=== PATIENT | female | born 1950 ===

== ENCOUNTER → 2025-04-29 10:08 | Outpatient (REF) | payer MEDICARE, OTHER, SELFPAY ==
[2025-04-29 10:48] LABS: % Basophils 0.7 % (0-2); % Eosinophils 0.5 % (0-6); % Immature Granulocytes 0.2 % (0-0.5); % Lymphocytes 16.9 % (20.5-51.1); % Neutrophils 74.7 % (42.2-75.2); Absolute Basophils 0.1 10^3/uL (0-0.2); Absolute Eosinophils 0.1 10^3/uL (0-0.7); Absolute Lymphocytes 1.6 10^3/uL (1.2-3.4); Absolute Monocytes 0.6 10^3/uL (0.1-0.6); Absolute Neutrophils 6.8 10^3/uL (1.4-6.5); Hematocrit 42.7 % (37.0-47.0); Hemoglobin 14.6 g/dL (12.0-16.0); Mean Corp Hgb Conc. 34.2 g/dL (33.0-37.0); Mean Corpuscular Hgb 30.7 pg (27.0-31.0); Mean Corpuscular Volume 89.9 fL (81.0-99.0); Mean Platelet Volume 9.3 fL (7.4-10.4); Nucleated Red Blood Cells % 0 %; Platelet Count 307 10^3/uL (130-400); Red Blood Cell Count 4.75 10^6/uL (4.20-5.40); Red Cell Dist. Width 13.6 % (11.5-14.5); White Blood Cell Count 9.2 10^3/uL (4.8-10.8)
[2025-04-29 11:43] LABS: ALT (SGPT) 16 U/L (0-35); AST (SGOT) 22 U/L (14-36); Albumin 4.6 g/dl (3.5-5.0); Alkaline Phosphatase 66 U/L (38-126); Blood Urea Nitrogen 16 mg/dl (7-17); Calcium 10.4 mg/dl (8.4-10.2); Carbon Dioxide 29 mmol/L (22-30); Chloride 106 mmol/L (98-107); Glucose 102 mg/dl (70-99); Potassium 4.6 mmol/L (3.5-5.1); Sodium 143 mmol/L (135-145); Total Bilirubin 0.5 mg/dl (0.2-1.3); Total Protein 7.9 g/dl (6.3-8.2); eGFR 58.02
== END ==
LOC: SDSPAT 10:08
PROVIDERS: ATTENDING PHYSICIAN Student in an Organized Health Care Education/Training Program; FAMILY PHYSICIAN Internal Medicine; REFERRING PHYSICIAN Internal Medicine Cardiovascular Disease
DX: R94.39 Abnormal result of other cardiovascular function study (principal); I25.10 Atherosclerotic heart disease of native coronary artery without angina pectoris
CPT/HCPCS: 36415; 80053; 85025; 93005

== ENCOUNTER 2025-05-03 06:13 | Day surgery (SDC) | payer MEDICARE, OTHER, SELFPAY ==
[2025-04-29 10:29] VITALS: BMI 27.3
[2025-05-03] VITALS (14 sets, daily range): BP systolic 98–141; BP diastolic 63–84
[2025-05-03] MEDS: NSS 1000 IV (09:49)
--- NOTE | 2025-05-03 09:56 | ITS.CL.PN ---
[employer] - Procedure Note
Procedure
Procedure Note:
CARDIAC CATHETERIZATION REPORT
Date of Procedure: 05/03/2025
Referring: Dr. Chandler Hamilton MD
Indication: atypical angina, positive cardiac stress test as part of preoperative evaluation for total knee replacement
PROCEDURE(S)
1. left heart catheterization
2. coronary angiography
ACCESS: 6F right radial artery (closure: radial band)
CATHETERS
1. 6F JR4
2. 6F JL4
MODERATE SEDATION: 25 minutes of moderate sedation was utilized. An independent emergency medical technician basic was present to assist with and help manage the patient's level of consciousness and physiologic status.
HEMODYNAMIC DATA
LV 137/6 (EDP 14) mmHg
AO 138/64 (mean 94) mmHg
CORONARY ANGIOGRAPHY
Dominance: Right
LM: Large vessel with trivial luminal irregularities only.
LAD: Large vessel giving rise to a small D1 and small D2 before wrapping around the apex. There is a long, up to 50-60%, moderately calcified stenosis in the proximal LAD spanning the takeoff of D1 and D2. There are otherwise mild luminal
irregularities only.
LCx: Large vessel giving rise to a large branching OM1 and small LPL branch. There is mild luminal disease in the proximal vessel and trivial luminal irregularities distally.
RCA: Large vessel giving rise to a moderate caliber RPDA and numerous small RPL branches. There is mild up to 20% disease in the proximal vessel and trivial luminal irregularities only in the mid and distal vessel.
RADIATION: dose 186 mGy; DAP 13 Gy*cm2; fluoroscopy time 3.1 min
CONCLUSIONS
1. Single vessel CAD as described, without significant change compared to reported anatomy from 2016 cath (images not available).
2. Mildly elevated LV filling pressure and no aortic stenosis.
RECOMMENDATIONS
1. Given atypical symptoms and single vessel disease, recommend initial medical management. If patient develops medication refractory symptoms, PCI of the prox-mid LAD would be reasonable though of mildly elevated complexity given calcification,
long lesion length, and need to halfway two small diagonal branches.
2. Agressive secondary prevention of coronary artery disease with goal LDL at least <70. Patient may require addition of non-statin medications to achieve this goal.
Copy to: Dr. Chandler Hamilton MD (ciaio lumite injector); Dr. Mariela Cortez MD (PCP)
Signed: Geoffrey Bean MD, PhD
== END 2025-05-03 12:18 | disposition home or self-care (01) ==
LOC: CATH 06:13
PROVIDERS: ATTENDING PHYSICIAN Student in an Organized Health Care Education/Training Program; FAMILY PHYSICIAN Internal Medicine; REFERRING PHYSICIAN Internal Medicine Cardiovascular Disease
DX: I25.118 Atherosclerotic heart disease of native coronary artery with other forms of angina pectoris (principal); I10 Essential (primary) hypertension; E78.5 Hyperlipidemia, unspecified; I25.84 Coronary atherosclerosis due to calcified coronary lesion; F41.9 Anxiety disorder, unspecified; M19.90 Unspecified osteoarthritis, unspecified site; Z01.810 Encounter for preprocedural cardiovascular examination; Z79.82 Long term (current) use of aspirin; Z79.899 Other long term (current) drug therapy; Z82.49 Family history of ischemic heart disease and other diseases of the circulatory system; Z85.3 Personal history of malignant neoplasm of breast; Z86.73 Personal history of transient ischemic attack (TIA), and cerebral infarction without residual deficits; Z87.891 Personal history of nicotine dependence; Z88.5 Allergy status to narcotic agent; Z96.659 Presence of unspecified artificial knee joint; Z79.01 Long term (current) use of anticoagulants
CPT/HCPCS: 99152; 99153; 93458; C1769; C1894; Q9967